=== PATIENT | female | born 1990 | race American Indian/Alaskan Native ===

== ENCOUNTER 2016-10-31 15:46 | Emergency (ER) | payer SELFPAY ==
[2016-10-31 16:39] LABS: Anion Gap 17 mmol/L; BUN/Creatinine Ratio 13.33; Blood Urea Nitrogen 8 mg/dL (7-17); Calcium 8.7 mg/dL (8.4-10.2); Carbon Dioxide 22 mmol/L (22-30); Chloride 103.4 mmol/L (98-107); Glucose 87 mg/dL (65-100); Potassium 4.1 mmol/L (3.6-5.0); Sodium 138 mmol/L (137-145)
[2016-10-31 16:40] LABS: Bilirubin,Urine NEG (Negative); Blood,Urine NEG (Negative); Ketones,Urine NEG (Negative); Leukocyte Esterase,Urine NEG (Negative); Nitrite,Urine NEG (Negative); Protein,Urine <15 mg/dL mg/dL (Negative); RBC,Urine < 1.0 /HPF (0.0-6.0); Urobilinogen,Urine < 2.0 mg/dL (<2.0); WBC,Urine < 1.0 /HPF (0.0-6.0)
[2016-10-31 16:40] LABS: Basophils % (Auto) 1.3 % (0.0-1.8); Eosinophils % (Auto) 3.1 % (0.0-4.3); Hematocrit 26.6 % (30.3-42.9); Mean Corpuscular HGB Conc 30 % (30-34); Platelet Count 400 K/mm3 (140-440); Red Blood Count 4.45 M/mm3 (3.65-5.03); Red Cell Distribution Width 19.2 % (13.2-15.2); White Blood Count 5.8 K/mm3 (4.5-11.0)
[2016-10-31 16:44] LABS: Mean Corpuscular Hemoglobin 18 pg (28-32); Mean Corpuscular Volume 60 fl (79-97)
[2016-10-31] MEDS ORDERED: TORADOL IM ONE (19:57)
[2016-10-31 21:52] LABS: Alanine Aminotransferase 16 units/L (7-56); Albumin 4.1 g/dL (3.9-5); Albumin/Globulin Ratio 1.2 %; Alkaline Phosphatase 41 units/L (35-129); Total Protein 7.6 g/dL (6.3-8.2)
[2016-10-31 21:54] LABS: Bilirubin,Direct < 0.2 mg/dL (0-0.2); Bilirubin,Indirect 0.9 mg/dL
--- NOTE | 2016-10-31 22:35 | Ultrasound Report ---
FINAL REPORT EXAM: US PELVIC COMPLETE HISTORY: pelvic pain COMPARISONS: None. FINDINGS: Transabdominal grayscale and color Doppler ultrasound evaluation of the pelvis Anteverted uterus measures 9.9 x 4.7 x 5.4 cm. Homogeneous endometrium measures up to 10 millimeters in thickness. No focal myometrial abnormality. The ovaries are not well visualized. Both the uterus and ovaries are better demonstrated on transvaginal ultrasound of the same date. IMPRESSION: No focal uterine abnormality. The adnexa are not well seen and both uterus and ovaries are better demonstrated on transvaginal ultrasound of the same date.
--- NOTE | 2016-10-31 22:36 | Ultrasound Report ---
FINAL REPORT EXAM: US TRANSVAGINAL HISTORY: pelvic pain COMPARISONS: None. FINDINGS: Transvaginal grayscale, color and spectral Doppler ultrasound evaluation of the pelvis Anteverted uterus measures 9.9 x 4.7 x 5.4 cm. Myometrium is within normal limits. Endometrium is homogeneous and measures up to 10 millimeters in thickness. Trace free fluid in the pelvis is likely physiologic. In the both the in cyst is incidentally noted. Ovaries measure 3.7 x 2 x 2.2 cm on the right and 4.6 x 2.8 x 3 cm on the left. Left ovarian functional cyst is noted measuring up to 2.3 cm. Normal spectral Doppler waveforms bilaterally. IMPRESSION: Unremarkable pelvic ultrasound.
[2016-10-31 22:51] VITALS: BP 109/82
--- NOTE | 2016-10-31 22:53 | Emergency Department Report ---
ED Abdominal Pain HPI - General Chief Complaint: Abdominal Pain Stated Complaint: ABD PAIN Time Seen by Provider: 10/31/16 19:54 Source: patient Mode of arrival: Ambulatory Limitations: No Limitations - History of Present Illness Initial Comments: 26 yo female presenting to ED complaining of abdominal pain,pain is located in suprapubic area. Pain is not accompanied by: fever/chills, chest pain, N/V/D MD Complaint: abdominal pain Onset/Timin -: week(s) Location: suprapubic Radiation: none Migration to: no migration Severity scale (0 -10): 10 Quality: cramping Consistency: intermittent Improves With: nothing Worsens With: nothing Associated Symptoms: denies other symptoms. denies: nausea, vomiting, diarrhea , constipation, dysuria, hematemesis - Related Data Previous Rx's Medication Instructions Recorded Last Taken Type RX: Ibuprofen [Motrin 800 MG tab] 800 mg PO Q8HR PRN #30 tablet 10/31/16 Unknown Rx Allergies Allergy/AdvReac Type Severity Reaction Status Date / Time No Known Allergies Allergy Verified 10/31/16 19:39 ED Review of Systems ROS: Stated complaint: ABD PAIN Other details as noted in HPI Constitutional: denies: chills, fever Eyes: denies: eye pain, eye discharge, vision change ENT: denies: ear pain, throat pain Respiratory: denies: cough, shortness of breath, wheezing Cardiovascular: chest pain. denies: palpitations Endocrine: no symptoms reported Gastrointestinal: abdominal pain. denies: nausea, diarrhea Genitourinary: denies: urgency, dysuria, discharge Musculoskeletal: denies: back pain, joint swelling, arthralgia Skin: denies: rash, lesions Neurological: denies: headache, weakness, paresthesias Psychiatric: denies: anxiety, depression Hematological/Lymphatic: denies: easy bleeding, easy bruising ED Past Medical Hx - Past Medical History Hx Hypertension: No Hx Congestive Heart Failure: No Hx Diabetes: No Hx Deep Vein Thrombosis: No Hx Renal Disease: No Hx Sickle Cell Disease: No Hx Seizures: No Hx Asthma: No Hx COPD: No Hx HIV: No Additional medical history: lupus - Surgical History Additional Surgical History: x 2 - Social History Smoking Status: Never Smoker Substance Use Type: None - Medications Home Medications: Home Medications Medication Instructions Recorded Confirmed Last Taken Type RX: Ibuprofen [Motrin 800 MG tab] 800 mg PO Q8HR PRN #30 tablet 10/31/16 Unknown Rx ED Physical Exam - General Limitations: No Limitations General appearance: alert, in no apparent distress - Head Head exam: Present: atraumatic, normocephalic - Eye Eye exam: Present: normal appearance - ENT ENT exam: Present: mucous membranes moist - Neck Neck exam: Present: normal inspection - Respiratory Respiratory exam: Present: normal lung sounds bilaterally. Absent: respiratory distress - Cardiovascular Cardiovascular Exam: Present: regular rate, normal rhythm. Absent: systolic murmur, diastolic murmur, rubs, gallop - GI/Abdominal GI/Abdominal exam: Present: soft, normal bowel sounds. Absent: distended, tenderness, guarding, rebound - External exam: Present: normal external exam. Absent: erythema Speculum exam: Present: normal speculum exam. Absent: erythema, vaginal discharge, cervical discharge Bi-manual exam: Present: normal bi-manual exam. Absent: cervical motion tendernes, adnexal tenderness - Extremities Exam Extremities exam: Present: normal inspection - Back Exam Back exam: Present: normal inspection - Neurological Exam Neurological exam: Present: alert, oriented X3 - Psychiatric Psychiatric exam: Present: normal affect, normal mood - Skin Skin exam: Present: warm, dry, intact, normal color. Absent: rash ED Course Vital Signs 10/31/16 10/31/16 10/31/16 15:51 20:02 22:50 Temperature 98.4 F Pulse Rate 86 68 61 Respiratory 17 18 16 Rate Blood Pressure 122/77 Blood Pressure 112/63 109/82 [Left] O2 Sat by Pulse 100 100 98 Oximetry - Reevaluation(s) Reevaluation #1: 10/31/16 22:49 pt admits symptoms have improved and she is requesting to dc home ED Medical Decision Making - Lab Data Result diagrams: 10/31/16 16:12 10/31/16 16:12 - EKG Data -: EKG Interpreted by Me EKG shows normal: sinus rhythm (67), axis, intervals, QRS complexes Rate: normal - EKG Data When compared to previous EKG there are: previous EKG unavailable Interpretation: no acute changes, normal EKG - Radiology Data Radiology results: pending, report reviewed, image reviewed unremarkable pelvic ultrasound Dr Georgiana TSE - Medical Decision Making 26 yo female with PMHX of lupus presenting to ED with abdominal pain and chest pain. Pt work up negative for acute findings. I have low suspicoin for: appendicitis, tubo ovarian abscess, PID, acute abdomen, ACS, PE, PNA, dissection. The patient's symptoms have improved and she is stable to dc home Critical Care Time: No Critical care attestation.: If time is entered above; I have spent that time in minutes in the direct care of this critically ill patient, excluding procedure time. ED Disposition Clinical Impression: Chest pain, Abdominal pain Disposition: DC01 TO HOME OR SELFCARE Is pt being admited?: No Does the pt Need Aspirin: No Condition: Stable Instructions: Chest Pain (ED), Abdominal Pain (ED) Prescriptions: RX: Ibuprofen [Motrin 800 MG tab] 800 mg PO Q8HR PRN #30 tablet PRN Reason: Pain , Severe (7-10) Referrals: PRIMARY CARE, [Primary Care Provider] - 3-5 Days PAOLO TSAI DO [Staff Physician] - 2-3 Days
--- NOTE | 2016-11-01 08:02 | XRay Report ---
ROUTINE CHEST, TWO VIEWS: HISTORY: chest pain. The trachea, heart, mediastinal contour, lung page and bony thorax are unremarkable. IMPRESSION: Unremarkable chest x-ray. No change since 12/05/14.
== END 2016-10-31 23:17 | disposition home or self-care (01) ==
LOC: ED 15:46
DX: R10.9 Unspecified abdominal pain (principal); R07.9 Chest pain, unspecified
CPT/HCPCS: 36415; 71020; 76830; 76856; 80048; 80074; 81001; 82962; 83690; 84484; 84703; 85025; 85379; 87210; 87591; 93005; 93010; 96372; 99285; J1885

== ENCOUNTER 2020-02-26 18:58 | Emergency (ER) | payer SELFPAY ==
--- NOTE | 2020-02-26 19:49 | Event Note ---
ED Screening Note ED Screening Note: syncope x2 that occurred today SOB lightheadedness dizziness no CP no n/v/d no fever PMHx iron deficiency anemia, was doing iron infusions has been 7 months since she has had an infusion, she was supposed to be getting them weekly, moved from [place] and has not established care LNMP: 02/20/2020 has had these symptoms before with her anemia states she last had a RBC transfusion in April 2019 This initial assessment/diagnostic orders/clinical plan/treatment(s) is/are subject to change based on patients health status, clinical progression and re- assessment by fellow clinical providers in the ED. Further treatment and workup at subsequent clinical providers discretion. Patient/guardian urged not to elope from the ED as their condition may be serious if not clinically assessed and managed. Initial orders include: labs, ekg
[2020-02-26 20:21] LABS: Basophils # (Auto) 0.1 K/mm3 (0.0-0.1); Basophils % (Auto) 0.7 % (0.0-1.8); Eosinophils # (Auto) 0.2 K/mm3 (0.0-0.4); Eosinophils % (Auto) 1.4 % (0.0-4.3); Hematocrit 23.5 % (30.3-42.9); Hemoglobin 7.4 gm/dl (10.1-14.3); Lymphocytes # (Auto) 3.5 K/mm3 (1.2-5.4); Lymphocytes % (Auto) 31.8 % (13.4-35.0); Mean Corpuscular HGB Conc 31 % (30-34); Monocytes # (Auto) 0.9 K/mm3 (0.0-0.8); Monocytes % (Auto) 7.9 % (0.0-7.3); Platelet Count 427 K/mm3 (140-440); Red Blood Count 4.26 M/mm3 (3.65-5.03); Red Cell Distribution Width 19.4 % (13.2-15.2)
[2020-02-26 20:23] LABS: Mean Corpuscular Volume 55 fl (79-97)
[2020-02-26 20:49] LABS: Alanine Aminotransferase 9 units/L (7-56); Albumin 4.2 g/dL (3.9-5); Blood Urea Nitrogen 13 mg/dL (7-17); Calcium 9.4 mg/dL (8.4-10.2); Hemolysis Index 2
[2020-02-26 20:50] LABS: BUN/Creatinine Ratio 22
[2020-02-26] MEDS ORDERED: SODIUM CHLORIDE 0.9% 1000 ML 1,000 ML IV ONE (21:12)
--- NOTE | 2020-02-26 21:14 | Emergency Department Report ---
ED General Adult HPI - General Chief complaint: Syncope Stated complaint: MIGRAINE, HEART RACING, SOB Time Seen by Provider: 02/26/20 19:47 Source: patient Mode of arrival: Ambulatory Limitations: No Limitations - History of Present Illness Initial comments: Pt is a 30 y/o aaf with hx of lupus and chronic iron deficienty anemia require prbc transfusions 2-3 times annually. pt states new to [place] and has not affiliated with [facility] in [facility] yet. Symptoms today include syncope x2 that occurred today , intermittent SOB, lightheadedness, dizziness , there is no CP , no n/v/d, no fever, no chills, pt has been 7 months since she has had iron infusion, she was supposed to be getting them weekly, moved from [place] and has not established care , LNMP: 02/20/2020. state symptoms to directly mimic symptoms of past, states she last had a RBC transfusion in April 2019 - Related Data Previous Rx's Medication Instructions Recorded Last Taken Type Ibuprofen [Motrin 800 MG tab] 800 mg PO Q8HR PRN #30 tablet 10/31/16 Unknown Rx Ferrous Sulfate [Ferrous Sulfate 324 mg PO TID #90 tablet. 02/27/20 Unknown Rx 324 MG] Allergies Allergy/AdvReac Type Severity Reaction Status Date / Time No Known Allergies Allergy Verified 10/31/16 19:39 ED Review of Systems ROS: Stated complaint: MIGRAINE, HEART RACING, SOB Other details as noted in HPI Constitutional: malaise. denies: chills, fever Eyes: denies: eye pain, eye discharge, vision change ENT: denies: ear pain, throat pain Respiratory: shortness of breath. denies: cough, wheezing Cardiovascular: denies: chest pain, palpitations Endocrine: no symptoms reported Gastrointestinal: denies: abdominal pain, nausea, diarrhea Genitourinary: denies: urgency, dysuria, discharge Musculoskeletal: denies: back pain, joint swelling, arthralgia Skin: denies: rash, lesions Neurological: weakness. denies: headache, numbness, paresthesias, confusion, abnormal gait Psychiatric: denies: anxiety, depression Hematological/Lymphatic: denies: easy bleeding, easy bruising ED Past Medical Hx - Past Medical History Previous Medical History?: Yes Hx Hypertension: No Hx Congestive Heart Failure: No Hx Diabetes: No Hx Deep Vein Thrombosis: No Hx Renal Disease: No Hx Sickle Cell Disease: No Hx Seizures: No Hx Asthma: No Hx COPD: No Hx HIV: No Additional medical history: lupus - Surgical History Past Surgical History?: Yes Additional Surgical History: x 2 - Social History Smoking Status: Never Smoker Substance Use Type: None - Medications Home Medications: Home Medications Medication Instructions Recorded Confirmed Last Taken Type Ibuprofen [Motrin 800 MG tab] 800 mg PO Q8HR PRN #30 tablet 10/31/16 Unknown Rx Ferrous Sulfate [Ferrous Sulfate 324 mg PO TID #90 tablet. 02/27/20 Unknown Rx 324 MG] ED Physical Exam - General Limitations: No Limitations General appearance: alert, in no apparent distress - Head Head exam: Present: atraumatic, normocephalic - Eye Eye exam: Present: normal appearance, PERRL, EOMI Pupils: Present: normal accommodation - ENT ENT exam: Present: mucous membranes moist - Neck Neck exam: Present: normal inspection, full ROM. Absent: tenderness - Respiratory Respiratory exam: Present: normal lung sounds bilaterally. Absent: respiratory distress, wheezes, stridor, chest wall tenderness - Cardiovascular Cardiovascular Exam: Present: normal rhythm, tachycardia, normal heart sounds - GI/Abdominal GI/Abdominal exam: Present: soft, normal bowel sounds. Absent: distended, tenderness, guarding, rebound, rigid, bruit, hernia - Rectal Rectal exam: Present: deferred - Extremities Exam Extremities exam: Present: normal inspection, full ROM, normal capillary refill. Absent: tenderness - Back Exam Back exam: Present: normal inspection, full ROM. Absent: tenderness, CVA tenderness (R), CVA tenderness (L), vertebral tenderness, rash noted - Neurological Exam Neurological exam: Present: alert, oriented X3, CN II-XII intact, normal gait, reflexes normal - Expanded Neurological Exam Expanded Patient oriented to: Present: person, place, time Speech: Present: fluid speech Motor strength exam: RUE: 5, LUE: 5, RLE: 5, LLE: 5 Best Eye Response ([place]): (4) open spontaneously Best Motor Response ([place]): (6) obeys commands Best Verbal Response ([place]): (5) oriented Wanda Total: 15 - Psychiatric Psychiatric exam: Present: normal affect, normal mood - Skin Skin exam: Present: warm, dry, intact. Absent: normal color (pale ), rash ED Course Vital Signs 02/26/20 19:40 Temperature 98.0 F Pulse Rate 101 H Respiratory 17 Rate Blood Pressure 108/70 O2 Sat by Pulse 100 Oximetry ED Medical Decision Making - Lab Data Result diagrams: 02/26/20 Unknown 02/26/20 Unknown Labs 02/26/20 02/26/20 02/26/20 Unknown Unknown Unknown WBC 10.9 RBC 4.26 Hgb 7.4 L Hct 23.5 L MCV 55 L MCH 17 L MCHC 31 RDW 19.4 H Plt Count 427 Lymph % (Auto) 31.8 [place] % (Auto) 7.9 H Eos % (Auto) 1.4 Baso % (Auto) 0.7 Lymph # (Auto) 3.5 [place] # (Auto) 0.9 H Eos # (Auto) 0.2 Baso # (Auto) 0.1 Seg Neutrophils % 58.2 Seg Neutrophils # 6.3 Sodium 138 Potassium 3.8 Chloride 103.9 Carbon Dioxide 20 L Anion Gap 18 BUN 13 Creatinine 0.6 Estimated GFR > 60 BUN/Creatinine Ratio 22 Glucose 86 Calcium 9.4 Total Bilirubin 0.40 AST 15 ALT 9 Alkaline Phosphatase 62 Total Protein 8.0 Albumin 4.2 Albumin/Globulin Ratio 1.1 HCG, Qual Negative - EKG Data EKG shows normal: sinus rhythm Rate: normal - EKG Data When compared to previous EKG there are: previous EKG unavailable Interpretation: normal EKG (normal ekg , no STEMI, ekg interp by ed attending. ) - Radiology Data Radiology results: report reviewed, image reviewed Findings Reporting MD: Alberto Jeong Dictation Time: February 26, 2020 21:36 Marble Finisher: Not available Roofer Date: CHEST 2 VIEWS INDICATION / CLINICAL INFORMATION: sob. COMPARISON: 10/31/2016 FINDINGS: SUPPORT DEVICES: None. HEART / MEDIASTINUM: No significant abnormality. LUNGS / PLEURA: No significant pulmonary or pleural abnormality. No pneumothorax. ADDITIONAL FINDINGS: No significant additional findings. IMPRESSION: 1. No acute findings. No significant change since 10/31/2016 Signer Name: Alberto Jeong MD Signed: 02/26/2020 9:36 PM Workstation Name: [id number] - Medical Decision Making This is symptomatic anemia , chronic, pt will be transfused prbc x 1 unit, benadryl, tylenol , will refill fe po, pt will follow up with [facility] and affiliate with pcp in 2-3 days. pt verbalized agreement and understanding of discharge plan. will be dc'd upon completion of PRBC infusion. Critical care attestation.: If time is entered above; I have spent that time in minutes in the direct care of this critically ill patient, excluding procedure time. ED Disposition Clinical Impression: Near syncope Anemia Qualifiers: Anemia type: iron deficiency Iron deficiency anemia type: unspecified iron deficiency Qualified Code(s): D50.9 - Iron deficiency anemia, unspecified Disposition: DC-01 TO HOME OR SELFCARE Is pt being admited?: No Does the pt Need Aspirin: No Condition: Stable Instructions: Iron Deficiency Anemia (ED), Near Syncope (ED), Anemia (ED) Prescriptions: Ferrous Sulfate [Ferrous Sulfate 324 MG] 324 mg PO TID #90 tablet. Referrals: SUSAN SANCHEZ MD [Staff Physician] - 3-5 Days NATACHA HOUSTON MD [Referring] - 3-5 Days Forms: Work/School Release Form(ED)
[2020-02-26] MEDS ORDERED: diphenhydrAMINE 25 MG CAP PO ONE (21:41)
[2020-02-26] MEDS ORDERED: ACETAMINOPHEN 500 MG TAB PO ONE (21:42)
[2020-02-26] MEDS ORDERED: SODIUM CHLORIDE 0.9% 500 ML 500 ML IV ONE (21:42)
--- NOTE | 2020-02-26 22:41 | XRay Report ---
CHEST 2 VIEWS INDICATION / CLINICAL INFORMATION: sob. COMPARISON: 10/31/2016 FINDINGS: SUPPORT DEVICES: None. HEART / MEDIASTINUM: No significant abnormality. LUNGS / PLEURA: No significant pulmonary or pleural abnormality. No pneumothorax. ADDITIONAL FINDINGS: No significant additional findings. IMPRESSION: 1. No acute findings. No significant change since 10/31/2016 Signer Name: Alberto Jeong MD Signed: 02/26/2020 10:36 PM Workstation Name: [id number]
[2020-02-27] MEDS ORDERED: SODIUM CHLORIDE 0.9% 500 ML 500 ML ONE (08:00)
[2020-02-27 10:55] VITALS: BP 126/77
== END 2020-02-27 11:54 | disposition home or self-care (01) ==
LOC: ED 18:58
DX: D50.9 Iron deficiency anemia, unspecified (principal); R55 Syncope and collapse; Z79.899 Other long term (current) drug therapy; Z98.890 Other specified postprocedural states
CPT/HCPCS: 36415; 36430; 71046; 80053; 84703; 85025; 86850; 86870; 86900; 86901; 86922; 93005; 96360; 99284; J7030; J7040; P9016; 86920

== ENCOUNTER 2020-06-03 03:37 | Emergency (ER) | payer MEDICAID ==
[2020-06-03] MEDS ORDERED: ONDANSETRON 4 MG/2 ML INJ IV ONE (04:53)
[2020-06-03] MEDS ORDERED: SODIUM CHLORIDE 0.9% 1000 ML 1,000 ML IV ONE (04:53)
[2020-06-03] MEDS ORDERED: fentaNYL 100 MCG/2 ML INJ IV ONE (05:08)
[2020-06-03 05:24] LABS: Basophils % (Auto) 0.4 % (0.0-1.8); Eosinophils # (Auto) 0.1 K/mm3 (0.0-0.4); Eosinophils % (Auto) 0.7 % (0.0-4.3); Hematocrit 22.3 % (30.3-42.9); Hemoglobin 7.1 gm/dl (10.1-14.3); Lymphocytes # (Auto) 1.5 K/mm3 (1.2-5.4); Lymphocytes % (Auto) 17.3 % (13.4-35.0); Mean Corpuscular HGB Conc 32 % (30-34); Monocytes # (Auto) 0.4 K/mm3 (0.0-0.8); Monocytes % (Auto) 4.8 % (0.0-7.3); Platelet Count 386 K/mm3 (140-440); Red Blood Count 3.89 M/mm3 (3.65-5.03); Red Cell Distribution Width 19.4 % (13.2-15.2)
[2020-06-03 05:27] LABS: Mean Corpuscular Volume 57 fl (79-97)
[2020-06-03 05:45] LABS: Alanine Aminotransferase 13 units/L (7-56); Albumin 3.7 g/dL (3.9-5); Blood Urea Nitrogen 8 mg/dL (7-17); Calcium 8.3 mg/dL (8.4-10.2); Hemolysis Index 0
[2020-06-03 05:48] LABS: Bilirubin,Urine NEG (Negative); Blood,Urine LG (Negative); Color,Urine Yellow (Yellow); Mucus,Urine FEW /HPF; Protein,Urine <15 mg/dL mg/dL (Negative); Urobilinogen,Urine < 2.0 mg/dL (<2.0)
[2020-06-03 05:57] LABS: BUN/Creatinine Ratio 13
--- NOTE | 2020-06-03 06:19 | Emergency Department Report ---
ED Abdominal Pain HPI - General Chief Complaint: Abdominal Pain Stated Complaint: abd pain Time Seen by Provider: 06/03/20 06:06 Source: patient, EMS Mode of arrival: Stretcher Limitations: No Limitations - History of Present Illness Initial Comments: 30-year-old female, history of anemia, lupus and Crohn's disease, presents to ED with abdominal pain. Patient states over the last few days she has been having some epigastric pain with eating. This is caused her to only eat 1 meal per day. Yesterday afternoon, patient reports she ate [employer]. Later in the evening, around 8 or 9 PM, patient began to experience worsening epigastric pain with associated nausea and vomiting. She denies any fever or diarrhea. MD Complaint: abdominal pain -: days(s) (4) Location: epigastric Radiation: none Migration to: no migration Severity: moderate Severity scale (0 -10): 10 Consistency: intermittent Improves With: nothing Worsens With: eating Associated Symptoms: nausea, vomiting. denies: diarrhea, fever - Related Data Previous Rx's Medication Instructions Recorded Last Taken Type Ibuprofen [Motrin 800 MG tab] 800 mg PO Q8HR PRN #30 tablet 10/31/16 Unknown Rx Dicyclomine [Bentyl] 20 mg PO QID PRN #20 tablet 06/03/20 Unknown Rx Ferrous Sulfate [Ferrous Sulfate 324 mg PO TID #90 tablet. 06/03/20 Unknown Rx 324 MG] Ondansetron [Zofran Odt] 4 mg PO Q8HR PRN #20 tab.rapdis 06/03/20 Unknown Rx Pantoprazole [Protonix TAB] 20 mg PO QDAY #30 tablet. 06/03/20 Unknown Rx Allergies Allergy/AdvReac Type Severity Reaction Status Date / Time No Known Allergies Allergy Verified 10/31/16 19:39 ED Review of Systems ROS: Stated complaint: abd pain Other details as noted in HPI Comment: All other systems reviewed and negative Constitutional: denies: chills, fever Gastrointestinal: abdominal pain, nausea, vomiting. denies: diarrhea ED Past Medical Hx - Past Medical History Previous Medical History?: Yes Hx Hypertension: No Hx Congestive Heart Failure: No Hx Diabetes: No Hx Deep Vein Thrombosis: No Hx Renal Disease: No Hx Sickle Cell Disease: No Hx Seizures: No Hx Asthma: No Hx COPD: No Hx HIV: No Additional medical history: lupus, chron's disease - Surgical History Past Surgical History?: Yes Additional Surgical History: x 2 - Social History Smoking Status: Current Every Day Smoker Substance Use Type: Alcohol - Medications Home Medications: Home Medications Medication Instructions Recorded Confirmed Last Taken Type Ibuprofen [Motrin 800 MG tab] 800 mg PO Q8HR PRN #30 tablet 10/31/16 Unknown Rx Dicyclomine [Bentyl] 20 mg PO QID PRN #20 tablet 06/03/20 Unknown Rx Ferrous Sulfate [Ferrous Sulfate 324 mg PO TID #90 tablet. 06/03/20 Unknown Rx 324 MG] Ondansetron [Zofran Odt] 4 mg PO Q8HR PRN #20 tab.rapdis 06/03/20 Unknown Rx Pantoprazole [Protonix TAB] 20 mg PO QDAY #30 tablet. 06/03/20 Unknown Rx ED Physical Exam - General Limitations: No Limitations General appearance: alert, in no apparent distress - Head Head exam: Present: atraumatic, normocephalic - Eye Eye exam: Present: normal appearance, EOMI - ENT ENT exam: Present: mucous membranes moist - Neck Neck exam: Present: normal inspection - Respiratory Respiratory exam: Present: normal lung sounds bilaterally. Absent: respiratory distress - Cardiovascular Cardiovascular Exam: Present: regular rate, normal rhythm - GI/Abdominal GI/Abdominal exam: Present: soft, tenderness (Mild epigastric). Absent: distended - Extremities Exam Extremities exam: Present: normal inspection - Neurological Exam Neurological exam: Present: alert, oriented X3 - Psychiatric Psychiatric exam: Present: normal affect, normal mood - Skin Skin exam: Present: warm, dry, intact, normal color ED Course Vital Signs 06/03/20 06/03/20 06/03/20 03:45 04:00 04:15 Temperature 98.8 F Pulse Rate 89 82 86 Respiratory 18 14 16 Rate Blood Pressure 115/82 115/77 Blood Pressure 114/83 [Left] O2 Sat by Pulse 100 Oximetry 06/03/20 06/03/20 06/03/20 04:30 04:45 05:00 Temperature Pulse Rate 75 79 84 Respiratory 16 18 18 Rate Blood Pressure 122/86 119/83 117/80 Blood Pressure [Left] O2 Sat by Pulse 98 Oximetry 06/03/20 06/03/20 06/03/20 05:15 05:30 05:45 Temperature Pulse Rate 90 80 75 Respiratory 16 12 13 Rate Blood Pressure 122/87 113/69 110/76 Blood Pressure [Left] O2 Sat by Pulse 100 100 Oximetry 06/03/20 0206/03/20 06:00 06:15 06:30 Temperature Pulse Rate 67 84 80 Respiratory 14 15 Rate Blood Pressure 108/73 110/73 106/77 Blood Pressure [Left] O2 Sat by Pulse 100 100 100 Oximetry 06/03/20 07:30 Temperature Pulse Rate 92 H Respiratory 19 Rate Blood Pressure Blood Pressure 106/77 [Left] O2 Sat by Pulse 99 Oximetry ED Medical Decision Making - Lab Data Result diagrams: 06/03/20 05:07 06/03/20 05:07 Critical care attestation.: If time is entered above; I have spent that time in minutes in the direct care of this critically ill patient, excluding procedure time. ED Disposition Clinical Impression: Enteritis, Anemia Disposition: DC-01 TO HOME OR SELFCARE Is pt being admited?: No Condition: Stable Instructions: Abdominal Pain (ED), Viral Gastroenteritis, Adult Prescriptions: Dicyclomine [Bentyl] 20 mg PO QID PRN #20 tablet PRN Reason: abdominal pain Ferrous Sulfate [Ferrous Sulfate 324 MG] 324 mg PO TID #90 tablet. Pantoprazole [Protonix TAB] 20 mg PO QDAY #30 tablet. Ondansetron [Zofran Odt] 4 mg PO Q8HR PRN #20 tab.rapdis PRN Reason: Vomiting Referrals: PRIMARY CAREMD [Primary Care Provider] - 3-5 Days RENÉ GARCIA MD [Staff Physician] - 3-5 Days [facility] [Provider Group] - 3-5 Days Time of Disposition: 07:39
[2020-06-03 06:31] VITALS: BP 106/77
--- NOTE | 2020-06-03 07:15 | Cat Scan Report ---
CT ABDOMEN AND PELVIS WITH CONTRAST INDICATION / CLINICAL INFORMATION: Pt complains of epigastric abd pain with nausea and vomiting. Hist ory of Crohn's disease, lupus, and anemia. TECHNIQUE: Axial CT images were obtained through the abdomen and pelvis after 100 mL Omnipaque [address] scans at this location are performed using CT dose reduction for ALARA by means of automated exposure control. COMPARISON: None available. FINDINGS: LOWER CHEST: No significant abnormality. LIVER: No significant abnormality. GALLBLADDER: No significant abnormality. BILE DUCTS: No significant abnormality. PANCREAS: No significant abnormality. SPLEEN: No significant abnormality. ADRENALS: No significant abnormality. RIGHT KIDNEY / URETER: No significant abnormality. LEFT KIDNEY / URETER: No significant abnormality. STOMACH / SMALL BOWEL: Fluid-filled but nondilated loops of mid to distal small bowel. COLON: Fluid-filled, nondilated colon. APPENDIX: No significant abnormality. PERITONEUM: No free fluid. No free air. No fluid collection. LYMPH NODES: No significant adenopathy. AORTA / ARTERIES: No significant abnormality. IVC / VEINS: No significant abnormality. URINARY BLADDER: No significant abnormality. REPRODUCTIVE ORGANS: Bilateral tubal ligation clips. No acute abnormality. ADDITIONAL FINDINGS: None. SKELETAL SYSTEM: No significant abnormality. IMPRESSION: 1. Fluid-filled, nondilated small bowel and colon which can be seen in the clinical setting of enteri tis. No bowel obstruction. Signer Name: Lulu Mata MD Signed: 06/03/2020 7:11 AM Workstation Name: [id number]
== END 2020-06-03 08:14 | disposition home or self-care (01) ==
LOC: ED 03:37
DX: K52.9 Noninfective gastroenteritis and colitis, unspecified (principal); D64.9 Anemia, unspecified; F17.200 Nicotine dependence, unspecified, uncomplicated; Z79.899 Other long term (current) drug therapy; Z98.890 Other specified postprocedural states
CPT/HCPCS: 36415; 74177; 80053; 81001; 83690; 84703; 85025; 96361; 96374; 96375; 99284; J2405; J3010; J7030; Q9967